=== PATIENT | male | born 1940 | race Caucasian/White ===

== ENCOUNTER 2021-11-23 14:17 | Inpatient (IN) ==
[2021-11-23 15:00] LABS: Basophils % 0.9 %; Eosinophils # 0.2 K/mcL (0.0-0.6); Eosinophils % 4.1 %; Hematocrit 35.9 % (37.5-50.1); Hemoglobin 12.6 g/dL (12.9-16.9); Immature Granulocytes % 0.2 % (0-4); Lymphocytes # 1.1 K/mcL (0.6-4.6); Lymphocytes % 25.1 %; Mean Corpuscular HGB Conc 35.1 g/dL (31.6-35.5); Mean Corpuscular Hemoglobin 34.6 pg (28.0-33.3); Mean Corpuscular Volume 98.6 fL (83.0-100.0); Mean Platelet Volume 9.6 fL (9.4-12.4); Monocytes # 0.4 K/mcL (0.0-1.3); Monocytes % 8.8 %; Neutrophils # 2.6 K/mcL (1.6-8.9); Platelet Count 127 K/mcL (140-400); Red Blood Count 3.64 M/mcL (4.19-5.50); Red Cell Distribution Width 13.7 % (11.5-14.5); Segmented Neutrophils % 60.9 %; White Blood Count 4.3 K/mcL (4.3-11.1)
[2021-11-23] MEDS ORDERED: Acetaminophen 325 MG TABLET PO PRN (15:01)
[2021-11-23] MEDS ORDERED: Naloxone 0.4 MG/ML INJ IVP PRN (15:01)
[2021-11-23 15:04] LABS: INR 1.1; Prothrombin Time 12.6 Seconds (9.4-12.1)
[2021-11-23 15:07] LABS: Activated Partial Thrombo Time 40.2 Seconds (26.0-36.0)
[2021-11-23] MEDS ORDERED: Perflutren Lipid Microsphere 1.3 ML in 0.9 % Sodium Chloride 8.7 ML IVP PRN (16:08)
[2021-11-23 16:58] LABS: BUN/Creatinine Ratio 22 (6-26); Blood Urea Nitrogen 35 mg/dL (8-23); Carbon Dioxide 23 mEq/L (23-29); Chloride 109 mEq/L (98-107); Glucose 110 mg/dL (70-105); Lipase 88 Units/L (11-82); Osmolality,Calculated 297 (280-300); Potassium 4.6 mEq/L (3.5-5.1); Sodium 139 mEq/L (136-145); Troponin I < 0.03 ng/mL (< 0.04); eGFR For African Americans 50 (> 60); eGFR For Non-African Americans 41 (> 60)
[2021-11-23] MEDS ORDERED: *HR* Heparin 5,000 UNIT/ML VIAL IVP ONE (17:17)
[2021-11-23] MEDS ORDERED: *HR* Heparin 5,000 UNIT/ML VIAL IVP PRN ×2 (17:17)
[2021-11-23] MEDS ORDERED: Heparin 25,000UNIT/250ML 1/2NS 25,000 UNIT/250 ML IV.SOLN IVC SCH (17:30)
[2021-11-23] MEDS ORDERED: Cyclosporine [Restasis Multidose] 5.5 ML Drops OP PRN (18:02)
[2021-11-23] MEDS ORDERED: Nitroglycerin 0.4 MG TAB.SUBL SL PRN (18:15)
[2021-11-23] MEDS: Aspirin Enteric Coated 81 MG Tablet PO SCH (18:15)
[2021-11-23] MEDS: Icosapent Ethyl [Vascepa] 1 GM Capsule PO SCH (21:24)
[2021-11-23] MEDS: Ranolazine 500 MG TAB.ER.12H PO SCH (21:24)
[2021-11-24 01:18] LABS: Calcium 8.7 mg/dL (8.6-10.3); Chol/HDL Ratio 2.8 (0-4.9); Potassium 4.1 mEq/L (3.5-5.1)
[2021-11-24 01:29] LABS: Eosinophils # 0.2 K/mcL (0.0-0.6); Eosinophils % 4.5 %; Hematocrit 33.8 % (37.5-50.1); Hemoglobin 11.6 g/dL (12.9-16.9); Immature Granulocytes % 0.3 % (0-4); Lymphocytes # 1.4 K/mcL (0.6-4.6); Lymphocytes % 35.8 %; Mean Corpuscular HGB Conc 34.3 g/dL (31.6-35.5); Mean Corpuscular Hemoglobin 33.9 pg (28.0-33.3); Mean Corpuscular Volume 98.8 fL (83.0-100.0); Mean Platelet Volume 9.7 fL (9.4-12.4); Monocytes # 0.4 K/mcL (0.0-1.3); Neutrophils # 1.9 K/mcL (1.6-8.9); Platelet Count 108 K/mcL (140-400); Red Blood Count 3.42 M/mcL (4.19-5.50); Red Cell Distribution Width 13.9 % (11.5-14.5); Segmented Neutrophils % 48.4 %
[2021-11-24] MEDS ORDERED: Isosorbide MONOnitrate (24 HR) 60 MG TAB.ER.24H PO SCH (09:00)
[2021-11-24] MEDS: 0.9 % Sodium Chloride 1,000 ML IVC SCH (09:26)
[2021-11-24] MEDS: Ezetimibe [Zetia] 10 MG Tablet PO SCH (09:44)
[2021-11-24] MEDS: Isosorbide MONOnitrate (24 HR) 60 MG TAB.ER.24H PO SCH (09:44)
[2021-11-24] MEDS: Aspirin Enteric Coated 81 MG Tablet PO SCH (09:44)
[2021-11-24] MEDS: Icosapent Ethyl [Vascepa] 1 GM Capsule PO SCH ×2 (09:45→19:21)
[2021-11-24] MEDS: Multivit/Ca/Min/Fe/FA 1 TAB TABLET PO SCH (09:45)
[2021-11-24] MEDS: Ranolazine 500 MG TAB.ER.12H PO SCH ×2 (09:45→19:49)
[2021-11-24] MEDS ORDERED: *HR* Heparin 10,000 UNIT/10 ML VIAL ONE (14:37)
[2021-11-24] MEDS ORDERED: Heparin 1,000 UNITS/500 mL 500 ML ONE (14:37)
[2021-11-24] MEDS ORDERED: Nitroglycerin 1,000 MCG/5 ML VIAL IV ONE (14:37)
[2021-11-24] MEDS ORDERED: 0.9 % Sodium Chloride 1,000 ML ONE ×2 (14:37→14:38)
[2021-11-24] MEDS ORDERED: ISOVUE-370 200 ML INFUS..BTL ONE (14:37)
[2021-11-24] MEDS ORDERED: *HR* FentaNYL (PF) 100 MCG/2 ML VIAL ONE (14:49)
[2021-11-24] MEDS ORDERED: *HR* Midazolam HCl 2 MG/2 ML VIAL ONE (14:49)
[2021-11-24] MEDS: Metoprolol 100 MG TABLET PO SCH (19:49)
[2021-11-25] MEDS: 0.9 % Sodium Chloride 1,000 ML IVC SCH (05:10)
[2021-11-25 06:34] LABS: Basophils % 0.5 %; Eosinophils # 0.2 K/mcL (0.0-0.6); Eosinophils % 4.2 %; Hematocrit 34.7 % (37.5-50.1); Hemoglobin 11.7 g/dL (12.9-16.9); Immature Granulocytes % 0.5 % (0-4); Lymphocytes % 25.2 %; Mean Corpuscular HGB Conc 33.7 g/dL (31.6-35.5); Mean Corpuscular Hemoglobin 33.2 pg (28.0-33.3); Mean Corpuscular Volume 98.6 fL (83.0-100.0); Mean Platelet Volume 9.2 fL (9.4-12.4); Monocytes # 0.4 K/mcL (0.0-1.3); Monocytes % 9.3 %; Neutrophils # 2.3 K/mcL (1.6-8.9); Platelet Count 104 K/mcL (140-400); Red Blood Count 3.52 M/mcL (4.19-5.50); Red Cell Distribution Width 14.2 % (11.5-14.5); Segmented Neutrophils % 60.3 %; White Blood Count 3.8 K/mcL (4.3-11.1)
[2021-11-25 06:56] LABS: Calcium 8.7 mg/dL (8.6-10.3); Potassium 4.2 mEq/L (3.5-5.1)
[2021-11-25] MEDS ORDERED: Apixaban 5 MG TABLET PO SCH (09:45)
[2021-11-25] MEDS: Ranolazine 500 MG TAB.ER.12H PO SCH (09:49)
[2021-11-25] MEDS: Aspirin Enteric Coated 81 MG Tablet PO SCH (09:49)
[2021-11-25] MEDS: Multivit/Ca/Min/Fe/FA 1 TAB TABLET PO SCH (09:49)
[2021-11-25] MEDS: Metoprolol 100 MG TABLET PO SCH (09:50)
[2021-11-25] MEDS: Isosorbide MONOnitrate (24 HR) 60 MG TAB.ER.24H PO SCH (09:50)
[2021-11-25] MEDS: Ezetimibe [Zetia] 10 MG Tablet PO SCH (09:51)
[2021-11-25] MEDS: Icosapent Ethyl [Vascepa] 1 GM Capsule PO SCH (09:51)
[2021-11-25 10:50] VITALS: BP 151/65; PULSE 58; TEMP 98.1; O2SAT 94
== END 2021-11-25 14:45 | disposition home or self-care (01) | DRG 303 ==
LOC: EMEROOARM 14:17 → 3BNU 14:17 → SUATTDRO 15:18 → 3BNU 16:00
PROVIDERS: ADMIT Student in an Organized Health Care Education/Training Program; ATTEND Internal Medicine